=== PATIENT | female | born 1990 | race African-American/Black ===

== ENCOUNTER 2018-05-16 04:54 | Emergency (ER) | payer SELFPAY ==
--- NOTE | 2018-05-16 05:05 | PDOC ---
History of Present Illness - General Stated Complaint: TOOTHEACHE Time Seen by Provider: 05/16/18 04:59 History Source: Patient Exam Limitations: No Limitations - History of Present Illness Initial Comments: 05/16/18 05:00 Best Contact: PCP: Pmhx: Pshx: Allergies: FH: Social Hx: Cigarettes/ Alcohol/ Drugs/ LMP: IStop: 0 27-year-old female presents to the ER complaining of third left lower toothache 4 days without fever, chills, nausea/vomiting, facial pains, area, sore throat , difficulty swallowing, neck pain, chest pain, shortness of breath, abdominal pain. Patient describes the pain as 7/10 throbbing nonradiating intermittent discomfort. The pain is exacerbated there are no exacerbating or alleviating factors. Patient states she plans to go to a dentist within the next 24 hours. Past History - Past Medical History Allergies/Adverse Reactions: Allergies Allergy/AdvReac Type Severity Reaction Status Date / Time No Known Allergies Allergy Verified 02/07/16 20:59 Home Medications: Ambulatory Orders No Home Medications 0 dose .ROUTE UTDICT 12/26/12 Acetaminophen W/ Codeine #3 [Tylenol # 3 -] 1 tab PO Q6H #12 tablet MDD 4 Amoxicillin - [Amoxicillin 875mg Tablet -] 875 mg PO BID #20 tablet 05/16/18 - Suicide/Smoking/Psychosocial Hx Smoking Status: Yes Smoking History: Never smoked Have you smoked in the past 12 months: Yes Number of Cigarettes Smoked Daily: 0 If you are a former smoker, when did you quit?: 2 weeks ago Hx Alcohol Use: No Substance Use Type: Alcohol Review of Systems - Review of Systems Able to Perform ROS?: Yes Comments:: 05/16/18 05:00 CONSTITUTIONAL: Absent: fever, chills, diaphoresis, generalized weakness, malaise, loss of appetite HEENT: left lower 3rd molar toothache x4d Deneis any jaw pain Denies diff eating/drinking Absent: rhinorrhea, nasal congestion, throat pain, throat swelling, difficulty swallowing, mouth swelling, ear pain, eye pain, visual Changes CARDIOVASCULAR: Absent: chest pain, loss of consciousness, palpitations, irregular heart rate, peripheral edema Absent: myalgia, arthralgia, joint swelling SKIN: Absent: rash, itching, pallor HEMATOLOGIC/IMMUNOLOGIC: Absent: easy bleeding, easy bruising, lymphadenopathy, frequent infections ENDOCRINE: Absent: unexplained weight gain, unexplained weight loss, heat intolerance, cold intolerance Is the patient limited Sudanese proficient: No *Physical Exam - Physical Exam Comments: 05/16/18 05:02 GENERAL: Well developed, well nourished. Awake and alert. No acute distress. HEENT: Normocephalic, atraumatic. PERRLA, EOMI. No conjunctival pallor. Sclera are non- icteric. Moist mucous membranes. Oropharynx is clear. NECK: Supple. Full ROM. No JVD. Carotid pulses 2+ and symmetric, without bruits. No thyromegaly. No lymphadenopathy. 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 Normal capillary refill. No rashes. No jaundice. *DC/Admit/Observation/Transfer Diagnosis at time of Disposition: Toothache - Discharge Dispostion Condition at time of disposition: Stable Decision to Admit order: No - Prescriptions Prescriptions: Acetaminophen W/ Codeine #3 [Tylenol # 3 -] 1 tab PO Q6H #12 tablet MDD 4 Amoxicillin - [Amoxicillin 875mg Tablet -] 875 mg PO BID #20 tablet - Referrals - Patient Instructions Additional Instructions: Follow up with the dentist [facility] [phone] [place]: [phone] Tuesday through Tuesday: 4 PM to 9 PM Tuesday and Tuesday 9 AM to 5 PM Antibiotics until completion Pain medication/use sparingly Return to the ER for severe/persistent/worsening symptoms - Post Discharge Activity
[2018-05-16 05:22] VITALS: BP 124/83; PULSE 81; TEMP 97.6; BMI 39.0
== END 2018-05-16 05:39 | disposition home or self-care (01) ==
LOC: JER 04:54
DX: K08.89 Other specified disorders of teeth and supporting structures (principal)
CPT/HCPCS: 99281-25

== ENCOUNTER 2018-08-12 15:43 | Emergency (ER) | payer SELFPAY ==
[2018-08-12 15:51] VITALS: TEMP 97.9; BMI 38.0
--- NOTE | 2018-08-12 16:15 | PDOC ---
History of Present Illness - General Chief Complaint: Lightheaded Stated Complaint: DIZZINESS Time Seen by Provider: 08/12/18 16:04 History Source: Patient - History of Present Illness Timing/Duration: other Past History - Past Medical History Allergies/Adverse Reactions: Allergies Allergy/AdvReac Type Severity Reaction Status Date / Time shrimp Allergy Verified 08/12/18 15:47 Home Medications: Ambulatory Orders NK [No Known Home Medication] 05/16/18 COPD: No - Suicide/Smoking/Psychosocial Hx Smoking Status: Yes Smoking History: Current every day smoker Have you smoked in the past 12 months: Yes Number of Cigarettes Smoked Daily: 0 If you are a former smoker, when did you quit?: 2 weeks ago Information on smoking cessation initiated: No Hx Alcohol Use: No Drug/Substance Use Hx: No Substance Use Type: Alcohol Review of Systems - Review of Systems Constitutional: Yes: Malaise, Weakness. No: Chills, Fever Respiratory: No: Shortness of Breath Cardiac (ROS): No: Chest Pain ABD/GI: No: Constipated, Diarrhea, Nausea, Vomiting, Abdominal cramping : No: Dysuria *Physical Exam - Vital Signs Last Vital Signs Temp Pulse Resp BP Pulse Ox 97.9 F 106 H 18 160/100 100 08/12/18 15:50 08/12/18 15:50 08/12/18 15:50 08/12/18 15:50 08/12/18 15:50 - Physical Exam General Appearance: Yes: Appropriately Dressed. No: Apparent Distress HEENT: positive: Normal Voice Neck: positive: Supple, Other (proninent thyroid, ? goiter). negative: Tender Respiratory/Chest: positive: Lungs Clear, Normal Breath Sounds. negative: Respiratory Distress Cardiovascular: positive: Regular Rate, S1, S2 Gastrointestinal/Abdominal: positive: Soft. negative: Tender Integumentary: positive: Dry, Warm Neurologic: positive: Fully Oriented, Alert, Normal Mood/Affect Moderate Sedation - Procedure Monitoring Vital Signs: Procedure Monitoring Vital Signs Temperature 97.9 F 08/12/18 15:50 Pulse Rate 106 H 08/12/18 15:50 Respiratory Rate 18 08/12/18 15:50 Blood Pressure 160/100 08/12/18 15:50 O2 Sat by Pulse Oximetry (%) 100 08/12/18 15:50 ED Treatment Course - LABORATORY CBC & Chemistry Diagram: 08/12/18 16:20 08/12/18 16:20 Medical Decision Making - Medical Decision Making 08/12/18 16:13 28-year-old morbidly obese female here with intermittent dizziness, fatigue and possible body cramps for 2 days. No URI symptoms, fever, chills, nausea, vomiting, change in bowel movements, abdominal pain, chest pain or shortness of breath. States she stopped taking her OCPs 3 months ago and now has been bleeding for the past 2 weeks. Pt state she has had similar sxs in past and was seen in ED at [facility] in 2016 when TSH was found to be elevated to 6. 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 Denies cold intolerance, constipation, unexplained weight gain or mood changes at this time See exam Malaise/weakness Elevated TSH in past w/ endocrine eval in past but never on meds Prominent thyroid/goiter on exam -labs 08/12/18 17:24 Labs only remarkable for TSH of >5. Free T4 pending, pt declines to wait. Concern is for possible hypothyroidism, no e/o complications at this time, i.e myxedema coma, etc. Case d/w ED attg who agrees to d/c w/ endocrine f/u. Rpt vitals improved without intervention. Pt discharged in stable condition 08/12/18 17:38 08/12/18 18:18 08/12/18 18:31 Free T4 0.88. I called and informed pt. States she will follow up. *DC/Admit/Observation/Transfer Diagnosis at time of Disposition: Elevated TSH Fatigue Qualifiers: Fatigue type: unspecified Qualified Code(s): R53.83 - Other fatigue - Discharge Dispostion Disposition: HOME Condition at time of disposition: Stable - Referrals Referrals: ON STAFF,NOT [Primary Care Provider] - - Patient Instructions Printed Discharge Instructions: Hypothyroidism Additional Instructions: Your thyroid test (TSH) was 5.53 today. 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
[2018-08-12 16:33] LABS: BASO % 0.5 % (0-2.0); HEMATOCRIT 34.2 % (32.4-45.2); HEMOGLOBIN 11.7 GM/dL (10.7-15.3); LYMPH % 31.4 % (8-40); MCH 27.5 pg (25.7-33.7); MCHC 34.3 g/dl (32.0-36.0); MEAN CELL VOLUME 80.2 fl (80-96); MEAN PLT VOLUME 7.7 fl (7.5-11.1); MONO % 6.1 % (3.8-10.2); PLATELET COUNT 374 K/MM3 (134-434); RBC 4.27 M/mm3 (3.60-5.2); RDW 13.4 % (11.6-15.6); WHITE BLOOD COUNT 10.9 K/mm3 (4.0-10.0)
[2018-08-12 16:53] LABS: URINE APPEARANCE CLEAR; URINE BILIRUBIN NEGATIVE (<2.0 mg/dL); URINE COLOR LTYELLOW; URINE GLUCOSE (UA) NEGATIVE (NEGATIVE); URINE KETONE NEGATIVE (NEGATIVE); URINE LEUK ESTERASE NEGATIVE (NEGATIVE); URINE NITRITE NEGATIVE (NEGATIVE); URINE PROTEIN NEGATIVE (NEGATIVE); URINE UROBILINOGEN NEGATIVE mg/dL (0.2-1.0)
[2018-08-12 16:55] LABS: HCG,QUALITATIVE URINE Negative
[2018-08-12 17:00] LABS: ALBUMIN 3.6 g/dl (3.4-5.0); ALK PHOS 79 U/L (45-117); ANION GAP 7 MMOL/L (8-16); BILIRUBIN,TOTAL 0.2 mg/dL (0.2-1); BLOOD UREA NITROGEN 11 mg/dL (7-18); CALCIUM 8.9 mg/dL (8.5-10.1); CHLORIDE 108 mmol/L (98-107); CO2 26 mmol/L (21-32); CREATININE 0.7 mg/dL (0.55-1.3); GLUCOSE,RANDOM 82 mg/dL (74-106); POTASSIUM 4.3 mmol/L (3.5-5.1); SGOT/AST 23 U/L (15-37); SGPT/ALT 34 U/L (13-61); SODIUM 142 mmol/L (136-145); TOT PROT 7.4 g/dl (6.4-8.2)
[2018-08-12 17:07] LABS: EPI CELLS RARE /HPF (FEW)
[2018-08-12 17:21] VITALS: BP 134/88; PULSE 84
--- NOTE | 2018-08-13 15:40 | EKG ---
Test Reason : Blood Pressure : / mmHG Vent. Rate : 095 BPM Atrial Rate : 095 BPM P-R Int : 168 ms QRS Dur : 086 ms QT Int : 368 ms P-R-T Axes : 050 028 026 degrees QTc Int : 462 ms NORMAL SINUS RHYTHM NORMAL ECG WHEN COMPARED WITH ECG OF 12-NOV-2013 09:17, NO SIGNIFICANT CHANGE WAS FOUND Confirmed by STEWART BARRIOS MD ([id number]) on 08/13/2018 3:39:59 PM Referred By: Confirmed By:STEWART BARRIOS MD
== END 2018-08-12 17:51 | disposition home or self-care (01) ==
LOC: JER 15:43
DX: R94.6 Abnormal results of thyroid function studies (principal); R53.83 Other fatigue
CPT/HCPCS: 36415; 80053; 81003; 81015; 84439; 84443; 84703; 85025; 93005; 93010; 99282-25

== ENCOUNTER 2023-01-17 02:19 | Emergency (ER) | payer OTHER ==
[2023-01-17 02:33] VITALS: BP 130/72; PULSE 69; RESP 18; TEMP 98.1; BMI 42.0
[2023-01-17 03:49] LABS: BASO % 0.5 % (0-2.0); EOS % 0.9 % (0-4.5); HEMATOCRIT 37.8 % (32.4-45.2); HEMOGLOBIN 12.8 GM/dL (10.7-15.3); LYMPH % 17.9 % (8-40); MCH 26.5 pg (25.7-33.7); MCHC 33.9 g/dl (32.0-36.0); MEAN CELL VOLUME 78.1 fl (80-96); MEAN PLT VOLUME 7.5 fl (7.5-11.1); MONO % 8.2 % (3.8-10.2); NEUT % 72.5 % (42.8-82.8); PLATELET COUNT 356 10^3/uL (134-434); RBC 4.84 M/mm3 (3.60-5.2); RDW 13.7 % (11.6-15.6); WHITE BLOOD COUNT 10.6 K/mm3 (4.0-10.0)
[2023-01-17 03:58] LABS: INR 1.14 (0.83-1.09); PROTHROMBIN TIME (PATIENT) 13.2 SEC (9.7-13.0)
[2023-01-17 04:01] LABS: ACTIVATED PTT 32.4 SECONDS (25.2-36.5)
[2023-01-17 04:08] LABS: ALBUMIN 3.7 g/dl (3.4-5.0); CALCIUM 9.2 mg/dL (8.5-10.1)
[2023-01-17 04:09] LABS: BLOOD UREA NITROGEN 13.5 mg/dL (7-18)
[2023-01-17 04:12] LABS: CREATININE 0.8 mg/dL (0.55-1.3)
[2023-01-17 04:14] LABS: BILIRUBIN,TOTAL 0.8 mg/dL (0.2-1)
== END 2023-01-17 05:50 | disposition home or self-care (01) ==
LOC: JER 02:19
DX: M62.81 Muscle weakness (generalized) (principal); R06.02 Shortness of breath; R07.89 Other chest pain; R61 Generalized hyperhidrosis; R00.2 Palpitations
CPT/HCPCS: 36415; 71046-TC-FY; 80053; 84436; 84443; 84479; 84484; 85025; 85610; 85730; 93005; 93010; 99285-25

== ENCOUNTER 2023-05-18 16:11 | Emergency (ER) | payer OTHER ==
[2023-05-18 16:21] VITALS: BMI 40.1
[2023-05-18] MEDS ORDERED: ACETAMINOPHEN 500 MG TABLET (FP) PO ONE (17:01)
[2023-05-18] MEDS ORDERED: ALBUTEROL SO4 2.5/IPRATROPIUM 0.5 INH SOL 3 ML VIAL.NEB. NEB ONE ×2 (17:01→17:09)
[2023-05-18] MEDS ORDERED: ACETAMINOPHEN 500 MG TABLET (FP) ONE (17:09)
[2023-05-18 17:44] VITALS: BP 139/88
[2023-05-18] MEDS ORDERED: KETOROLAC TROMETHAMINE 30 MG/1 ML VIAL IM ONE (17:45)
[2023-05-18] MEDS ORDERED: KETOROLAC TROMETHAMINE 30 MG/1 ML VIAL ONE (17:46)
[2023-05-18 18:14] VITALS: PULSE 120; RESP 18; TEMP 101
== END 2023-05-18 18:13 | disposition home or self-care (01) ==
LOC: JERFT 16:11
PROC: 3E0333Z Introduction of Anti-inflammatory into Peripheral Vein, Percutaneous Approach (ICD-10-PCS; principal; 2023-05-18)
PROC: 3E0F7GC Introduction of Other Therapeutic Substance into Respiratory Tract, Via Natural or Artificial Opening (ICD-10-PCS; 2023-05-18)
DX: R05.9 Cough, unspecified (principal); R50.9 Fever, unspecified; R53.81 Other malaise; R09.89 Other specified symptoms and signs involving the circulatory and respiratory systems; J06.9 Acute upper respiratory infection, unspecified; Z20.822 Contact with and (suspected) exposure to COVID-19
CPT/HCPCS: 0241U-QW; 71046-TC-FY; 99284-25

== ENCOUNTER 2024-08-21 06:15 | Inpatient (IN) | payer OTHER ==
[2024-08-21] MEDS: LACTATED RINGERS SOLUTION 1,000 ML/1,000 ML INFUS.BAG IV SCH (06:25)
[2024-08-21] MEDS ORDERED: OXYTOCIN 20 UNITS in 0.9% NS 20 UNIT/1,000 ML INFUS.BAG IV ONE (06:34)
[2024-08-21] MEDS ORDERED: OXYTOCIN 10 UNITS/ML VIAL ONE (06:34)
[2024-08-21] MEDS: OXYTOCIN 20 UNITS in 0.9% NS 20 UNIT/1,000 ML INFUS.BAG IV SCH (06:35)
[2024-08-21] MEDS: OXYTOCIN 10 UNITS/ML VIAL IM ONE (06:35)
[2024-08-21] MEDS ORDERED: WITCH HAZEL 50% (TUCKS) 40 PAD/JAR PAD TP PRN ×2 (07:00→07:05)
[2024-08-21] MEDS ORDERED: BISACODYL 10 MG SUPP.RECT RC PRN ×2 (07:00→07:05)
[2024-08-21] MEDS ORDERED: BENZOCAINE 28 GM HEMORRHOIDAL OINTMENT TP PRN ×2 (07:00→07:05)
[2024-08-21] MEDS ORDERED: ACETAMINOPHEN 325 MG TABLET (FP) PO PRN ×2 (07:00→07:05)
[2024-08-21] MEDS ORDERED: IBUPROFEN 600 MG TABLET (FP) PO PRN (07:05)
[2024-08-21] MEDS ORDERED: BENZOCAINE 20% 57 GM BOTTLE TP PRN (07:05)
[2024-08-21] MEDS ORDERED: oxyCODONE HCL 5 MG TABLET PO PRN (07:05)
[2024-08-21] MEDS ORDERED: METHYLERGONOVINE MALEATE 0.2 MG/1 ML AMP IM PRN (07:05)
[2024-08-21] MEDS ORDERED: OXYTOCIN 20 UNITS in 0.9% NS 20 UNIT/1,000 ML INFUS.BAG IV SCH (07:15)
[2024-08-21 07:37] VITALS: BMI 38.3
[2024-08-21] MEDS ORDERED: IBUPROFEN 600 MG TABLET (FP) PO ONE (08:33)
[2024-08-21] MEDS: IBUPROFEN 600 MG TABLET (FP) PO PRN (08:40)
[2024-08-21 08:44] LABS: HEMATOCRIT 40.1 % (32.4-45.2); HEMOGLOBIN 12.8 GM/dL (10.7-15.3); MCH 27.7 pg (25.7-33.7); MCHC 31.8 g/dl (32.0-36.0); MEAN PLT VOLUME 8.4 fl (7.5-11.1); PLATELET COUNT 339 10^3/uL (134-434); RBC 4.61 M/mm3 (3.60-5.2); RDW 13.1 % (11.6-15.6); WHITE BLOOD COUNT 24.7 K/mm3 (4.0-10.0)
[2024-08-21 09:07] LABS: POTASSIUM 3.9 mmol/L (3.5-5.1)
[2024-08-21 09:09] LABS: BLOOD UREA NITROGEN 7.5 mg/dL (7-18)
[2024-08-21 09:12] LABS: CREATININE 0.6 mg/dL (0.55-1.3)
[2024-08-21 09:15] LABS: ACTIVATED PTT 30.1 SECONDS (25.2-36.5); INR 0.95 (0.83-1.09); PROTHROMBIN TIME (PATIENT) 10.5 SEC (9.7-13.0)
[2024-08-21 09:22] LABS: URINE BARBITURATES NEGATIVE (NEGATIVE); URINE BENZODIAZEPINES NEGATIVE (NEGATIVE)
[2024-08-21 09:23] LABS: COCAINE, UR NEGATIVE (NEGATIVE); METHADONE, UR NEGATIVE (NEGATIVE); OPIATES, URI NEGATIVE (NEGATIVE); PHENCYCLIDINE,URINE NEGATIVE (NEGATIVE); URINE AMPHETAMINES NEGATIVE (NEGATIVE)
[2024-08-21 11:33] LABS: ANISOCYTOSIS 0; HELMET CELLS 0; HOWELL-JOLLY BODIES 0; MACROCYTOSIS 0; OVALOCYTE 0; ROULEAU 0; SICKELED CELLS 0; TARGET CELLS 0; TEAR DROP CELLS 0; TOXIC GRANULATION 0
[2024-08-21] MEDS: BENZOCAINE 20% 57 GM BOTTLE TP PRN (16:57)
[2024-08-22 07:15] LABS: BASO % 0.3 % (0-2.0); EOS % 0.3 % (0-4.5); HEMATOCRIT 30.7 % (32.4-45.2); HEMOGLOBIN 10.1 GM/dL (10.7-15.3); MCH 28.2 pg (25.7-33.7); MEAN CELL VOLUME 85.6 fl (80-96); MEAN PLT VOLUME 8.1 fl (7.5-11.1); MONO % 5.9 % (3.8-10.2); NEUT % 75.5 % (42.8-82.8); PLATELET COUNT 288 10^3/uL (134-434); RBC 3.59 M/mm3 (3.60-5.2); WHITE BLOOD COUNT 18.1 K/mm3 (4.0-10.0)
[2024-08-22] MEDS ORDERED: SENNOSIDES/DOCUSATE COMBO (SENNA PLUS) TABLET (UD) PO PRN ×2 (22:00)
[2024-08-22 22:05] VITALS: RESP 18
[2024-08-23 10:52] VITALS: BP 143/86; PULSE 73; TEMP 97.9
== END 2024-08-23 14:50 | disposition home or self-care (01) | DRG 560 ==
LOC: JLDR 06:15 → J3W 08:50
PROVIDERS: ADMIT Student in an Organized Health Care Education/Training Program; ATTEND Student in an Organized Health Care Education/Training Program
PROC: 10E0XZZ Delivery of Products of Conception, External Approach (ICD-10-PCS; principal; 2024-08-21)
PROC: 0W8NXZZ Division of Female Perineum, External Approach (ICD-10-PCS; 2024-08-21)
DX: O80 Encounter for full-term uncomplicated delivery (principal); Z3A.39 39 weeks gestation of pregnancy; Z37.0 Single live birth
CPT/HCPCS: 36415; 59025; 59409; 80048; 80307; 85025; 85610; 85730; 86780; 86850; 86900; 86901